=== PATIENT | male | born 1955 | race Caucasian/White ===

== ENCOUNTER 2019-11-19 07:54 | Outpatient (RCR) | payer OTHER, SELFPAY ==
--- NOTE | 2019-11-19 09:01 | PTOPEVAL ---
Thank you for referring Mitchell Madrigal to [facility].? The patient is scheduled to be seen for therapy? ____x/week for ___ weeks. Please review, sign, date and return this plan of care MARIANA. I agree with and certify that the following plan of care is medically necessary. Referring Physician Date Admitting Provider: Attending Provider: PHYSICIAN NOT ON STAFF Referring Provider: *PT Outpatient Evaluation Start: 11/19/19 08:04 Freq: Status: Active Protocol: Document 11/19/19 08:04 Flip (Rec: 11/19/19 09:00 [facility] [id number]) Therapy Assessment Status Assessment Status Assessment Status Evaluation Evaluation Information Problem Diagnosis lumbar radiculopathy, cervical radiculopathy, R side sciatica Onset 11/14/19 Additional Evaluation Detail NDI = 44% Subjective Information patient reports he has pain in Query Text:As Reported By Patient/ the neck/back and down the Family arms and legs. he reports he has been having these pain and symptoms for about 8-9 years. he reports he has had an mri of the neck last year, and is awaiting and MRI of the lower back. he reports he has seen a neurologist. he reports the pain in his arms and legs feels like a deep pain/ache. he reports it is not sensitive to touch. he reports last year he was barely able to walk. 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 he reports the pain is worse in his lower back lately. he reports increased pain with walking and standing. he reports the pain will bounce around his body and extremities. he reports the pain increased the R anterior thigh over the past few days. Prior Level of Function Comments Additional Prior Level of Function patient reports he would like Comments to get back to walking, driving, riding in car, and standing without increased pain or limitations. Pain Assessment Timing of Pain Assessment Timing of Pain Assessment
--- NOTE | 2020-01-15 07:32 | PCPTNOTE ---
01/15/20 - patient has not been to therapy in over a month. he has been called and no return visits have been scheduled to finish out his POC. as of this date, he will be DC'd from skilled PT services and all progress towards goals will be taken from his most recent evaluation/note.
== END 2019-11-21 14:42 | disposition home or self-care (01) ==
LOC: CHSPT 07:54
DX: M54.12 Radiculopathy, cervical region (principal); M54.16 Radiculopathy, lumbar region; M54.41 Lumbago with sciatica, right side; G89.29 Other chronic pain
CPT/HCPCS: 97014; 97110; 97162; G0283

== ENCOUNTER 2020-08-08 10:31 | Emergency (ER) | payer OTHER, SELFPAY ==
[2020-08-08 10:38] VITALS: BP 137/62; PULSE 93; RESP 14; TEMP 36.3; O2SAT 97
--- NOTE | 2020-08-08 10:55 | ED.DENTAL ---
HPI - Dental/Oral General Chief complaint: Dental/Oral Stated complaint: swollen mouth Source: patient and family Mode of arrival: ambulatory History of Present Illness HPI Narrative: this is a 64-year-old male with a history of hypertension/depression, presents with some chronic dental decay in his left lower molar currently having left lower jaw swelling with gum inflammation and tenderness with no fever chills no shortness of breath no nausea vomiting. MD Complaint: tooth pain Teeth map: 1. dental decay with surrounding gum inflammation and left jaw swelling Onset (ago): day(s) Duration: intermittent Severity: mild Severity scale (1-10): 4 Relieving factors: NSAIDs Exacerbating factors: chewing Context: history of dental caries Associated symptoms: gum swelling Treatment prior to arrival: oral analgesic Related Data Home Medications Medication Instructions Recorded Confirmed divalproex 250 mg PO DAILY 08/08/20 08/08/20 gabapentin 300 mg PO DAILY 08/08/20 08/08/20 losartan-hydrochlorothiazide 1 tablet PO DAILY 08/08/20 08/08/20 venlafaxine 225 mg PO DAILY 08/08/20 08/08/20 Allergies Allergy/AdvReac Type Severity Reaction Status Date / Time No Known Allergies Allergy Verified 08/08/20 10:42 Review of Systems Review of Systems: All systems reviewed & are unremarkable except as noted in HPI and below PMFSH Past Medical History Medical History HTN (hypertension) Exam Const: General: no acute distress Orientation/consciousness: patient oriented x3 HENMT: Head: normal to inspection Other: left lower molar dental decay with surrounding gum inflammation Eyes: Conjunctivae: conjunctivae normal Pupils: Equal, round and reactive pupils present Chest: Chest palpation & inspection: normal inspection of the chest Resp: Effort & Inspection: normal respiratory effort Auscultation: clear to auscultation bilaterally Cardio: Rate: regular rate Rhythm: regular rhythm GI: GI Palp: Yes Soft to palpation Urinary Catheter: Urinary Catheter: patent and draining Back/Spine/Pelvis: Back: no CVA tenderness Skin: General skin exam: normal color Rashes: no rashes Neuro: General: patient oriented x3 and moves all extremities Extrem: General: normal to inspection and no pedal edema Psych: Appearance: grossly normal Mental Status: mental status grossly normal Affect: normal affect Course Course Emergency Course: assessment of patient has some left lower molar dental decay with surrounding gum inflammation will send antibiotics to his pharmacy. Vital Signs Vital signs: Vital Signs Temperature 36.3 C L 08/08/20 10:38 Pulse Rate 93 08/08/20 10:38 Respiratory Rate 14 08/08/20 10:38 Blood Pressure 137/62 08/08/20 10:38 Pulse Oximetry 97 08/08/20 10:38 Temperature 36.3 C L 08/08/20 10:38 Pulse Rate 93 08/08/20 10:38 Respiratory Rate 14 08/08/20 10:38 Blood Pressure 137/62 08/08/20 10:38 Pulse Oximetry 97 08/08/20 10:38 Critical Care Time Critical Care Time Critical Care Time: No Discharge Plan Discharge Clinical Impression: Toothache, Dental caries, Dental abscess Patient Disposition: Home, Self-Care Condition: Stable Instructions: Antibiotic Form, Dental Abscess (ED), Toothache (ED) Additional Instructions: Advised to take medicine as prescribed, and can take ibuprofen 600 mg 3 times a day with meals times 3 to 5 days and follow-up with primary care physician or dentist for further evaluation and treatment. Prescriptions: New amoxicillin 500 mg tablet 500 mg PO TID Qty: 30 RF: 0 No Action losartan-hydrochlorothiazide 50-12.5 mg Tablet 1 tablet PO DAILY RF: 0 divalproex 250 mg Tablet Extended Release 24 Hr 250 mg PO DAILY RF: 0 gabapentin 300 mg Tablet 300 mg PO DAILY RF: 0 venlafaxine 225 mg Tablet Extended Release 24hr 225 mg PO DAILY RF: 0 Follow-u
[2020-08-08 11:01] VITALS: PULSE 90; RESP 16; O2SAT 98
== END 2020-08-08 11:04 | disposition home or self-care (01) ==
PROVIDERS: Emergency Provider Emergency Medicine; PCP Family Medicine
DX: K08.89 Other specified disorders of teeth and supporting structures (principal); K02.9 Dental caries, unspecified; K04.7 Periapical abscess without sinus
CPT/HCPCS: 99283

== ENCOUNTER 2020-08-21 07:59 | Outpatient (RCR) | payer OTHER, SELFPAY ==
--- NOTE | 2020-08-21 08:51 | PTOPEVAL ---
Thank you for referring Mitchell Madrigal to [facility].? The patient is scheduled to be seen for therapy? ____x/week for ___ weeks. Please review, sign, date and return this plan of care MARIANA. I agree with and certify that the following plan of care is medically necessary. Referring Physician Date Admitting Provider: Attending Provider: Rashmi Dozier, STORE RECEIVING CLERK Referring Provider: *PT Outpatient Evaluation Start: 08/21/20 08:00 Freq: Status: Active Protocol: Document 08/21/20 08:05 [facility] (Rec: 08/21/20 08:50 [facility] [id number]) Therapy Assessment Status Assessment Status Assessment Status Evaluation Outpatient Past Medical History Cardiovascular History Hx Hypertension Yes Musculoskeletal History Hx Other Musculoskeletal Disorders Yes: spinal stenosis Psychosocial History Hx Depression Yes Evaluation Information Problem Diagnosis lumbago Onset 08/12/20 Additional Evaluation Detail oswestry = 68% functionally declined Subjective Information patient reports he has spinal Query Text:As Reported By Patient/ stenosis in his neck. he Family reports he is awaiting an MRI of the lower back. he reports he has pain in the legs from the ankles up. he reports he has pain in his arms and legs. he reports feeling tightness in his legs. he reports he did have injections to the neck last week. he reports this has helped his upper back a bit. he reports today he has increased pain in the hips, legs, and ankles. he reports he has increased pain with walking, working, sitting, and everything. he reports he has pins and needles pain at times, burning pain at times, sharp pain, and tightness in the legs. he reports symptoms of crawling sensation up the legs and then tightness in the mm's after this. 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 Prior Level of Function Comments Hubert
--- NOTE | 2020-10-12 16:12 | PCPTNOTE ---
patient has not been to skilled PT in over a month. as of this date, he will be dc'd from skilled PT and all progress towards goals will be taken from his most recent evaluation/note. KELVIN
== END 2020-08-28 09:07 | disposition home or self-care (01) ==
LOC: CHSPT 07:59
PROVIDERS: PCP Family Medicine; Visit Provider Nurse Practitioner Family
DX: M54.5 Low back pain (principal)
CPT/HCPCS: 97014; 97110; 97161; G0283

== ENCOUNTER 2020-11-23 10:16 | Outpatient (CLI) | payer OTHER, SELFPAY | END 2020-11-23 10:17 | disposition home or self-care (01) | LOC: CHSCARD 10:18 | PROVIDERS: PCP Family Medicine; Visit Provider Family Medicine | DX: R06.2 Wheezing (principal) | CPT/HCPCS: 94060; 94726; 94729 ==

== ENCOUNTER 2020-12-21 08:41 | Outpatient (CLI) | payer OTHER, SELFPAY ==
--- NOTE | ~2020-12-21 | CT_ITS ---
EXAMINATION:CT lung screening DATE: 12/21/2020 08:59 INDICATION: Personal history of nicotine dependence. Current smoker with 45 pack year history. TECHNIQUE: Computed tomography (CT) of the chest was performed without intravenous contrast. Automate d exposure control and iterative reconstruction technique were employed. The dose-length product (DLP ) was 100.81 mGy-cm. COMPARISON: Chest CT 07/30/2018 FINDINGS: There is mild emphysema. There is mild scarring at the lung apices without change. No pleur al effusion. The heart size is normal. There are coronary artery calcifications. No pericardial effus ion. There are cysts in the liver measuring up to 19 mm. There are bridging endplate osteophytes at m ultiple levels in the spine, consistent with diffuse idiopathic skeletal hyperostosis (DISH). IMPRESSION: 1. Lung-RADS category 2: Benign appearance or behavior. Continue annual screening with noncontrast lo w-dose chest CT in 12 months. Reviewed, dictated and finalized at location A. LS INSTRUCTOR IMPRESSION: 1. Lung-RADS category 2: Benign appearance or behavior. Continue annual screeni ng with noncontrast low-dose chest CT in 12 months.
== END 2020-12-21 08:42 | disposition home or self-care (01) ==
LOC: CHSIMG 08:42
PROVIDERS: PCP Family Medicine; Visit Provider Family Medicine
DX: Z12.2 Encounter for screening for malignant neoplasm of respiratory organs (principal); Z87.891 Personal history of nicotine dependence
CPT/HCPCS: 71271

== ENCOUNTER 2021-01-02 08:55 | Outpatient (CLI) | payer OTHER, SELFPAY | END 2021-01-02 08:56 | disposition home or self-care (01) | LOC: CHSIMG 08:57 | PROVIDERS: PCP Family Medicine; Visit Provider Nurse Practitioner Family | DX: M54.2 Cervicalgia (principal); M54.12 Radiculopathy, cervical region; Z53.8 Procedure and treatment not carried out for other reasons | CPT/HCPCS: 99199 ==

== ENCOUNTER 2022-03-23 10:26 | Outpatient (CLI) | payer OTHER, SELFPAY ==
--- NOTE | ~2022-03-23 | CT_ITS ---
EXAMINATION: CT lung screening DATE: 03/23/2022 10:43 INDICATION: Intermittent left-sided chest pain. Personal history of tobacco dependence. TECHNIQUE: Computed tomography (CT) of the chest was performed without intravenous contrast. The dose -length product was 108.00 mGy-cm. Automated exposure control and iterative reconstruction technique were employed. COMPARISON: CT dated 12/21/2020 FINDINGS: No pneumothorax. No endobronchial lesions. No thoracic lymphadenopathy. No significant pleu ral or pericardial effusion. There are small low-density lesions in the liver, most likely benign. Th ere is a 2 mm left upper lobe nodule. There is emphysema. No endobronchial lesions. There is diffuse idiopathic skeletal hyperostosis (DISH) of the thoracic spine. No focal lytic or blastic lesions. IMPRESSION: 1. Lung-RADS category 2: Benign appearance or behavior. Continue annual screening with noncontrast lo w-dose chest CT in 12 months. Reviewed, dictated and finalized at location A. SE RACK WORKER IMPRESSION: 1. Lung-RADS category 2: Benign appearance or behavior. Continue annual screeni ng with noncontrast low-dose chest CT in 12 months.
== END 2022-03-23 10:27 | disposition home or self-care (01) ==
LOC: CHSIMG 10:27
PROVIDERS: PCP Internal Medicine; Visit Provider Internal Medicine
DX: Z12.2 Encounter for screening for malignant neoplasm of respiratory organs (principal); Z87.891 Personal history of nicotine dependence
CPT/HCPCS: 71271

== ENCOUNTER 2022-07-18 10:27 | Outpatient (CLI) | payer OTHER, SELFPAY ==
--- NOTE | ~2022-07-18 | XR_ITS ---
EXAM: XR lumbar spine 2-3V DATE: 07/18/2022 11:09 HISTORY: chronic back pain,GENERAL PAIN,NKI . COMPARISON: None available. FINDINGS: 5 nonrib-bearing lumbar-type vertebral bodies. Pedicles intact. Multilevel mild degenerati ve vertebral body height loss. 3 mm retrolisthesis at L2-3. 5 mm anterolisthesis at L4-5. Multilevel disc space narrowing, moderate at L4-5 and severe at L5-S1. Multilevel moderate-severe marginal osteo phytosis, including large bridging and partially bridging anterior and lateral osteophytes. Severe hy pertrophy/sclerosis of the lower lumbar facets. Aortic calcification without evident aneurysm. IMPRESSION: Multilevel lumbar degenerative disc disease, severe at L5-S1. Grade 1 retrolisthesis at L 2-3. Grade 1 anterolisthesis at L4-5. Severe multilevel lower lumbar facet arthropathy. Reviewed, dictated and finalized at location K. IMPRESSION: Multilevel lumbar degenerative disc disease, severe at L5-S1. Grade 1 retrolisthesis at L2-3. Grade 1 anterolisthesis at L4-5. Severe multilevel l ower lumbar facet arthropathy.
== END 2022-07-18 10:28 | disposition home or self-care (01) ==
PROVIDERS: PCP Internal Medicine; Visit Provider Nurse Practitioner Family
DX: M54.50 Low back pain, unspecified (principal); M51.37 Other intervertebral disc degeneration, lumbosacral region; M43.16 Spondylolisthesis, lumbar region
CPT/HCPCS: 72100

== ENCOUNTER 2022-08-03 08:22 | Outpatient (CLI) | payer OTHER, SELFPAY ==
--- NOTE | ~2022-08-03 | CT_ITS ---
CT of the Abdomen and Pelvis: Indication: Chronic pancreatitis, elevated lipase Technique: 2.5 mm axial scans were obtained through the abdomen and pelvis following intravenous adm inistration of 100 cc of Omnipaque 350. Dose reduction technique was used on this scan by utilizing a utomated exposure control and iterative reconstruction technique. The dose-length product (DLP) was 4 00.03 mGy-cm. Findings: Scans through the lung bases are unremarkable. Several small hepatic cysts are present. The spleen, pancreas, gallbladder, adrenals and kidneys are within normal limits. There are atherosclerotic calcifications of the aorta. No lymphadenopathy. No bowel obstruction or bowel wall thickening. There is no evidence to suggest acute appendicitis. Images through the pelvis were performed. Urinary bladder unremarkable. Prostate gland and seminal ve sicles are unremarkable. No ascites. Degenerative spondylosis of lumbar spine noted. Impression: No significant abnormalities seen. Reviewed, dictated and finalized at [facility]. Impression: No significant abnormalities seen.
[2022-08-03 08:50] LABS: Estimated Glomerular Filt Rate > 60
== END 2022-08-03 08:23 | disposition home or self-care (01) ==
LOC: CHSIMG 08:23
PROVIDERS: PCP Internal Medicine; Visit Provider Internal Medicine
DX: K86.1 Other chronic pancreatitis (principal); R74.8 Abnormal levels of other serum enzymes; R10.9 Unspecified abdominal pain
CPT/HCPCS: 74177; Q9967